=== PATIENT | female | born 1985 | race Caucasian/White ===

== ENCOUNTER 2016-11-13 15:25 | Emergency (ER) | payer MEDICAID ==
[~2016-11-13 15:25] MED LIST: ALBUTEROL17 GM INH; AMOXICILLIN500 M1 PO; BACTRIM DS TABL1 TA1; BACTRIM DS TABL1 TA1 PO; BACTRIM DS TABL1 TA2 PO; BACTROBAN15 GM TOP; BENTYL20 MG PO; COLACE PO; DICLOFENAC PO; DOCUSATE SODIU100 MG PO; FLEXERIL10 MG PO; HYCODAN60 ML 5MG/ PO; HYDROCODON-ACE1 EAC7 PO; IBUPROFEN600 MG PO; IBUPROFEN800 MG PO; KEFLEX500 M1; KEFLEX500 M1 PO; KEFLEX500 MG PO; MEDROL PO; METRONIDAZOLE PO; NAPROSYN500 MG; NAPROSYN500 MG PO; NAPROXEN PO; NEURONTIN100 MG PO; NO MEDICATIONS; ORUDIS75 M1 DOB; PERCOCET 5-3251 TAB PO; PHENERGAN PO; PREDNISONE PO; PYRIDIUM PO; TYLENOL #3 PO; ULTRAM PO; VIBRAMYCIN100 M1 PO; VOLTAREN50 MG PO; VOLTAREN75 MG PO; ZOVIRAX15 GM TOP; ZOVIRAX400 MG PO; ZOVIRAX800 MG PO; magic mouthwash
[2016-12-04] MEDS ORDERED: ULTRAM (06:45)
== END 2016-11-13 16:26 | disposition home or self-care (01) ==
LOC: SED 15:25
DX: R21 Rash and other nonspecific skin eruption (principal); B20 Human immunodeficiency virus [HIV] disease; F17.200 Nicotine dependence, unspecified, uncomplicated; Z86.19 Personal history of other infectious and parasitic diseases; Z98.51 Tubal ligation status
CPT/HCPCS: 87253; 99283

== ENCOUNTER 2016-12-01 12:43 | Emergency (ER) | payer MEDICAID ==
--- NOTE | ~2016-12-01 | CT4 ---
[facility] A Service of [facility] & [facility] RADIOLOGY TEXT RESULTS PATIENT: EDUARDO GRUBER LOCATION: SED : [birth year] UNIT #: [id number] AGE: [address]: Michael Quintero MD SEX: F ORDER DR: [id number] [place] [id number] E MR#: [id number] Acc #: [id number] NAME: EDUARDO GRUBER. : 1985 SEX: F STUDY DATE/TIME: 12/01/2016 12:18 UNIT: SED ROOM: STUDY DESCRIPTION: CT Abd and Pelv Wo Cont Attending Physician: Michael Quintero M.D. Ordering Physician: Michael Quintero M.D. Primary Care Physician: [facility] MEDICAL IMAGING REPORT This report is preliminary unless electronic signature is present. EXAM Abdomen and pelvis CT no contrast 12/01/2016 INDICATIONS 31-year-old female with flank pain abdominal pain for 2 days on the left, nausea, history of stones. TECHNIQUE Noncontrast abdomen and pelvis CT was performed and compared with 10/25/2016. This CT exam was performed with one or more of the following radiation dose reduction techniques: automatic control, adjustment of mA and/or kV according to patient size, and iterative reconstruction. FINDINGS CT ABDOMEN: Exam degraded by noncontrast technique. Included lung bases clear. No pleural or pericardial effusion. Aorta unremarkable. Spleen adrenal glands pancreas and gallbladder are unremarkable. Gallbladder and liver unremarkable. Kidneys demonstrate no hydronephrosis. No radiopaque stone on either side. Ureters not completely visualized in their entirety but no secondary sign of obstruction on either side. CT PELVIS: Tiny dot of air within the bladder nonspecific but likely reflecting recent manipulation. What appear to represent tiny vascular calcifications in the pelvis. Some of these are in close proximity to the distal ureters but there is no secondary sign of obstruction. Correlate with urinalysis. No drainable fluid collection or free fluid in the pelvis. No adnexal mass. Bowel demonstrates a moderate stool burden. Appendix normal. Inguinal canals unremarkable. No suspicious bone lesion. IMPRESSION 1. Negative noncontrast abdomen and pelvis CT. No radiopaque stone or STS. [facility] A Service of [facility] & [facility] RADIOLOGY TEXT RESULTS PATIENT: EDUARDO GRUBER LOCATION: SED : [birth year] UNIT #: [id number] AGE: [address]: Michael Quintero MD SEX: F ORDER DR: hydronephrosis of either kidney. 2. The appendix is normal. 3. Tiny dot of air within the bladder is nonspecific but likely reflects recent manipulation or catheterization. Correlate clinically. Dictated by... Hawk Braga M.D. THIS IS AN ELECTRONICALLY VERIFIED REPORT Hawk Braga M.D. at 12/02/2016 7:34 AM MERCEDES/deidre TD: 12/01/2016 17:07 JOB #: [id number] MEDICAL IMAGING REPORT
[2016-12-01 12:02] LABS: URINE SOURCE CLEAN CATCH
[2016-12-01 12:05] LABS: URINE APPEARANCE CLEAR; URINE BILIRUBIN NEG (NEG); URINE BLOOD NEG (NEG); URINE COLOR YELLOW; URINE GLUCOSE NEG (NORM); URINE KETONE NEG (NEG); URINE LEUKOCYTE ESTERASE 1+ (NEG); URINE NITRATE NEG (NEG); URINE PROTEIN NEG (NEG); URINE SPECIFIC GRAVITY 1.025 (1.003-1.035); URINE UROBILINOGEN 0.2 MG/DL (NORM)
[2016-12-01 12:08] LABS: MICRO INDICATED? YES
[2016-12-01 12:16] LABS: CULTURE INDICATED? YES; URINE BACTERIA 1+ (NEG); URINE RBC 0-2 /[HPF] (0-2); URINE SQUAMOUS EPITHELIAL CELL OCCAS /[HPF]; URINE WBC 25-50 /[HPF] (0-5)
[2016-12-01] MEDS ORDERED: BACTRIM 400-801 EACH PO (13:03)
[2016-12-04] MEDS ORDERED: ULTRAM (06:45)
[2017-06-11] MEDS ORDERED: NO MEDICATIONS (14:16)
== END 2016-12-01 13:03 | disposition home or self-care (01) ==
LOC: SED 12:43
PROVIDERS: Emergency Medicine
DX: N39.0 Urinary tract infection, site not specified (principal); K75.9 Inflammatory liver disease, unspecified; F17.210 Nicotine dependence, cigarettes, uncomplicated; Z21 Asymptomatic human immunodeficiency virus [HIV] infection status
CPT/HCPCS: 74176; 81003; 84703; 87086; 99284

== ENCOUNTER 2016-12-02 15:58 | Emergency (ER) | payer MEDICAID ==
[~2016-12-02 15:58] MED LIST changes: +BACTRIM 400-801 EACH PO
[2016-12-02 16:15] LABS: BLOOD UREA NITROGEN 18 mg/dL (9-23); CALCIUM SERUM 8.9 mg/dL (8.4-10.2); CARBON DIOXIDE 28 mmol/L (22-31); CHLORIDE 102 mmol/L (100-111); GLOM FILT RATE Estimated ABOVE60 mL/min (>60); GLUCOSE FASTING 81 mg/dL (70-110); POTASSIUM 3.9 mmol/L (3.5-5.1); SODIUM 137 mmol/L (135-145)
[2016-12-02 16:47] LABS: BASOPHIL% 0.5 % (0-2.5); EOSINOPHIL# 0.1 X10e3 (0-0.7); EOSINOPHIL% 1.3 % (0.0-7.0); HEMATOCRIT 43.5 % (35.0-45.0); HEMOGLOBIN 14.5 gm/dL (12.0-16.0); LYMPHOCYTE# 2.3 X10e3 (1.0-3.5); MEAN CELL VOLUME 93.1 FL (83-96); MEAN CORPUSCULAR HGB CONC 33.3 g/dL (30-36); MEAN PLATELET VOLUME 9.5 FL (6.5-11.5); MONOCYTE# 0.5 X10e3 (0-1.0); MONOCYTE% 8.9 % (3.0-12.0); NEUTROPHIL# 2.8 X10e3 (1.5-7.1); NEUTROPHIL% 49.3 % (40-75); PLATELET COUNT 225 X10e3 (140-420); RED BLOOD COUNT 4.67 X10e (3.90-5.30); RED CELL DISTRIBUTION WIDTH 14.2 % (11.0-15.5); WHITE BLOOD COUNT 5.8 X10e3 (4.0-10.5)
[2016-12-02 16:48] LABS: DIFF IND NO
[2016-12-04] MEDS ORDERED: ULTRAM (06:45)
[2017-06-11] MEDS ORDERED: NO MEDICATIONS (14:16)
== END 2016-12-02 17:10 | disposition home or self-care (01) ==
LOC: SED 15:58
PROVIDERS: Emergency Medicine
DX: K62.5 Hemorrhage of anus and rectum (principal); F17.200 Nicotine dependence, unspecified, uncomplicated; Z98.51 Tubal ligation status; Z86.19 Personal history of other infectious and parasitic diseases
CPT/HCPCS: 36415; 80048; 85025; 99283

== ENCOUNTER 2016-12-04 07:07 | Emergency (ER) | payer MEDICAID ==
--- NOTE | ~2016-12-04 | CR141 ---
[facility] A Service of [facility] RADIOLOGY TEXT RESULTS PATIENT: EDUARDO GRUBER LOCATION: SED : [birth year] UNIT #: [id number] AGE: [address]: Hawk Shannon MD SEX: F ORDER DR: [id number] [place] [id number] E MR#: [id number] Acc #: [id number] NAME: EDUARDO GRUBER : 1985 SEX: F STUDY DATE/TIME: 12/04/2016 7:20 UNIT: SED ROOM: STUDY DESCRIPTION: CR Hand Min 3 Views Lt Attending Physician: Hawk Shannon M.D. Ordering Physician: Hawk Shannon M.D. Primary Care Physician: [facility] MEDICAL IMAGING REPORT This report is preliminary unless electronic signature is present. EXAM Left hand 12/04/2016 HISTORY 31-year-old female with left index finger pain and swelling for 3 days. COMPARISON None FINDINGS 3 views of the left hand were performed. The lateral view is suboptimal and there is some questionable irregularity along the palmar aspect of the base of the second middle phalanx. A subtle nondisplaced fracture is not excluded. There is some soft tissue swelling around the second proximal interphalangeal joint. No dislocation. IMPRESSION Limited examination secondary to suboptimal lateral projection. There is some questionable bony irregularity along the palmar aspect of the base of the second middle phalanx. A subtle nondisplaced fracture is not excluded. No dislocation. There is some soft tissue swelling around the second proximal interphalangeal joint. Correlation with tenderness in this location. Dictated by... Godwin Walker M.D. THIS IS AN ELECTRONICALLY VERIFIED REPORT Godwin Walker M.D. at 12/06/2016 8:30 AM MOY/andrea TD: 12/05/2016 08:54 [facility] A Service of [facility] RADIOLOGY TEXT RESULTS PATIENT: EDUARDO GRUBER LOCATION: SED : [birth year] UNIT #: [id number] AGE: [address]: Hawk Shannon MD SEX: F ORDER DR: TOMMY #: [id number] MEDICAL IMAGING REPORT Page 1 of 1
[~2016-12-04 07:07] MED LIST changes: +ULTRAM
[2017-06-11] MEDS ORDERED: NO MEDICATIONS (14:16)
== END 2016-12-04 08:09 | disposition home or self-care (01) ==
LOC: SED 07:07
DX: S60.022A Contusion of left index finger without damage to nail, initial encounter (principal); W22.8XXA Striking against or struck by other objects, initial encounter; Y92.009 Unspecified place in unspecified non-institutional (private) residence as the place of occurrence of the external cause
CPT/HCPCS: 29130; 73130; 99283

== ENCOUNTER 2016-12-06 18:54 | Emergency (ER) | payer MEDICAID ==
[2016-12-06 20:04] LABS: URINE SOURCE CLEAN CATCH
[2016-12-06 20:07] LABS: MICRO INDICATED? NO; URINE APPEARANCE CLEAR; URINE BILIRUBIN NEG (NEG); URINE BLOOD NEG (NEG); URINE COLOR YELLOW; URINE GLUCOSE NEG (NORM); URINE KETONE NEG (NEG); URINE LEUKOCYTE ESTERASE NEG (NEG); URINE NITRATE NEG (NEG); URINE PH 6.5 (5-8); URINE PROTEIN NEG (NEG); URINE SPECIFIC GRAVITY 1.025 (1.003-1.035)
[2016-12-06 20:16] LABS: AMPHETAMINE NEG (NEG); BARBITURATES NEG (NEG); BENZODIAZEPINES NEG (NEG); COCAINE NEG (NEG); MARIJUANA NEG (NEG); OPIATES NEG (NEG); TRICYCLIC ANTIDEPRESSANTS NEG (NEG); U METHADONE NEG (NEG)
[2016-12-06 20:17] LABS: BASOPHIL% 0.8 % (0-2.5); EOSINOPHIL# 0.1 X10e3 (0-0.7); EOSINOPHIL% 0.9 % (0.0-7.0); HEMATOCRIT 42.4 % (35.0-45.0); LYMPHOCYTE# 2.8 X10e3 (1.0-3.5); LYMPHOCYTE% 46.3 % (17.0-45.0); MEAN CELL VOLUME 92.5 FL (83-96); MEAN CORPUSCULAR HEMOGLOBIN 30.7 PG (28-34); MEAN CORPUSCULAR HGB CONC 33.2 g/dL (30-36); MONOCYTE# 0.5 X10e3 (0-1.0); MONOCYTE% 7.7 % (3.0-12.0); NEUTROPHIL# 2.7 X10e3 (1.5-7.1); NEUTROPHIL% 44.3 % (40-75); PLATELET COUNT 239 X10e3 (140-420); RED BLOOD COUNT 4.58 X10e (3.90-5.30); RED CELL DISTRIBUTION WIDTH 14.3 % (11.0-15.5)
[2016-12-06 20:18] LABS: DIFF IND NO
[2016-12-06 20:33] LABS: ALKALINE PHOSPHATASE 74 U/L (32-92); ALT (SGPT) 119 U/L (10-40); AST (SGOT) 86 U/L (10-42); BILIRUBIN,TOTAL 0.5 mg/dL (0.2-2.0); BLOOD UREA NITROGEN 16 mg/dL (9-23); CALCIUM SERUM 8.3 mg/dL (8.4-10.2); CARBON DIOXIDE 28 mmol/L (22-31); CHLORIDE 104 mmol/L (100-111); CREATININE SERUM 0.8 mg/dL (0.6-1.4); GLOM FILT RATE Estimated ABOVE60 mL/min (>60); GLUCOSE FASTING 95 mg/dL (70-110); POTASSIUM 3.7 mmol/L (3.5-5.1); SODIUM 137 mmol/L (135-145)
[2017-06-11] MEDS ORDERED: NO MEDICATIONS (14:16)
== END 2016-12-06 21:53 | disposition home or self-care (01) ==
LOC: SED 18:54
PROVIDERS: Emergency Medicine
DX: K62.5 Hemorrhage of anus and rectum (principal); F17.210 Nicotine dependence, cigarettes, uncomplicated
CPT/HCPCS: 36415; 80053; 80307; 81003; 84703; 85025; 85730; 96361; 96374; 99284; C9113; G0480

== ENCOUNTER 2017-05-25 00:54 | Emergency (ER) | payer MEDICAID ==
[~2017-05-25] VITALS: Ht 152.4 cm; Wt 73.0 kg
[2017-06-11] MEDS ORDERED: NO MEDICATIONS (14:16)
== END 2017-05-25 03:26 | disposition home or self-care (01) ==
LOC: SED 00:54
DX: F10.129 Alcohol abuse with intoxication, unspecified (principal); Y90.9 Presence of alcohol in blood, level not specified
CPT/HCPCS: 96374; 99284; J2405; J3411; J3475